=== PATIENT | male | born 1975 | race Caucasian/White ===

== ENCOUNTER 2016-10-05 02:29 | Emergency (ER) | payer OTHER, MEDICARE ==
[2016-10-05 03:11] LABS: BASOPHIL# 0.1 X 10^3uL (0.0-0.1); BASOPHILS 0.6 % (0.0-2.0); EOSINOPHILS 0.3 % (0.0-6.0); HEMATOCRIT 42.7 % (42.0-54.0); HEMOGLOBIN 14.7 g/dL (14.0-18.0); LYMPHOCYTES 19.1 % (20.0-40.0); LYMPHOCYTES# 1.8 X 10^3uL (0.8-3.8); MEAN CELL VOLUME 89.1 fL (80.0-100.0); MEAN CORPUS. HGB CONCENTRATION 34.5 g/dL (32.0-36.0); MEAN CORPUSCULAR HEMOGLOBIN 30.7 pg (29.0-35.0); MONOCYTES 6.1 % (2.0-10.0); MONOCYTES# 0.6 X 10^3uL (0.2-1.0); NEUTROPHILS 73.9 % (54.0-75.0); NEUTROPHILS# 6.7 X 10^3uL (2.6-6.7); PLATELET COUNT 289 X 10^3uL (130-440); RED CELL DISTRIBUTION WIDTH 12.5 % (11.5-14.5); WHITE BLOOD COUNT 9.2 X 10^3uL (3.9-10.7)
[2016-10-05 03:23] LABS: ALBUMIN 4.6 g/dL (3.5-5.0); ALKALINE PHOSPHATASE 82 U/L (38-126); ALT 32 U/L (21-72); AST 33 U/L (17-59); BILIRUBIN, DIRECT 0.1 mg/dL (0.0-0.4); BILIRUBIN, TOTAL 0.6 mg/dL (0.2-1.3); BLOOD UREA NITROGEN 14 mg/dL (9-20); CALCIUM 9.4 mg/dL (8.4-10.2); CHLORIDE 102 mmol/L (98-107); EST GLOMERULAR FILTRATION RATE > 60 mL/min; GLUCOSE 105 mg/dL (70-100); LIPASE 141 U/L (23-300); POTASSIUM 3.9 mmol/L (3.5-5.1); SODIUM 140 mmol/L (137-145); TOTAL PROTEIN 7.7 g/dL (6.3-8.2)
[2016-10-05] MEDS ORDERED: ONDANSETRON HCL 4 MG/2 ML VIAL ONE (03:54)
--- NOTE | 2016-10-05 04:59 | ER NURSING DOCUMENTATION ---
Nurse's Notes [facility] Name:Mario Manzo Age:41 yrs Sex:Male :1975 Arrival Date:10/05/2016 Time:02:29 Bed3 Private MD: Diagnosis:Nausea-: Chronic, recurrent, intractable;Intractable Vomiting;Dehydration Presentation: 10/05 02:36 Acuity: PIERO 3 bw2 02:39 Presenting complaint: Patient states: chronic nausea, states that the nausea and bw2 vomiting has increased since yesterday. pt states he is unable to keep food down. Transition of care: patient was not received from another setting of care. 02:39 Method Of Arrival: Walk In [facility] Triage Assessment: 02:41 General: Appears in no apparent distress, uncomfortable, Behavior is appropriate for bw2 age. Pain: Denies pain. GI: Reports intolerance of fluids, intolerance of food, nausea, vomiting, Denies diarrhea. Historical: - Allergies: No known drug Allergies; - Tetanus: < 10 years. - Ebola Screening: : Patient negative for fever greater than or equal to 101.5 degrees Fahrenheit, and additional compatible Ebola Virus Disease symptoms. Patient denies exposure to infectious person. Patient denies travel to an Ebola-affected area in the 21 days before illness onset. No symptoms or risks identified at this time. . - Immunization history: Flu Vaccine None. - Social history: Smoking status: Patient uses tobacco products, current every day smoker. Patient uses marijuana. Screenin:43 Infectious Disease Risk None. Abuse screen: Denies threats or abuse. Nutritional bw2 screening: No deficits noted. Assessment: 02:43 See Triage Assessment done by same RN. GI: Dry heaves. bw2 Vital Signs: 02:34 BP 135 / 100; Pulse 108; Resp 16; Temp 97.7; Pulse Ox 96% ; Weight 49.9 kg; Height 5 jt ft. 10 in. (177.80 cm); Pain 0/10; 04:56 BP 133 / 62; Pulse 97; Resp 18; Pulse Ox 95% ; Pain 0/10; bw2 02:34 Body Mass Index 15.78 (49.90 kg, 177.80 cm) jt ED Course: 02:30 Patient arrived in ED. jt 02:36 Yanique Swenson is Primary Nurse. bw2 02:36 Triage completed. bw2 02:37 Mathew Felton MD is Attending Physician. cd 02:43 Valuables Remains with patient Patient has correct armband on for positive bw2 identification. Side rails up X2. 02:48 Inserted peripheral IV: saline lock: 20 gauge in right antecubital area and blood jt collected. Administered Medications: 02:53 Drug: NS 0.9% 2000 ml; Route: IV; Rate: bolus; Site: right antecubital; bw2 03:49 Follow up: IV Status: Completed infusion bw2 02:53 Drug: Phenergan 12.5 mg; Route: IVP; Site: right antecubital; bw2 03:49 Follow up: Response: No adverse reaction; Nausea is decreased bw2 03:35 Drug: Zofran 4 mg; Route: IVP; Infused Over: 2 mins; Site: right antecubital; bw2 04:30 Follow up: Response: No adverse reaction bw2 03:48 Drug: NS 0.9% 1000 ml; Route: IV; Rate: 1 bolus; Site: right antecubital; bw2 04:30 Follow up: IV Status: Completed infusion bw2 03:54 CANCELLED (Physician Discretion): Phenergan 25 mg PO once cd 04:04 Drug: Phenergan 12.5 mg; Route: IVP; Site: right antecubital; bw2 04:29 Follow up: Response: No adverse reaction bw2 04:53 CANCELLED (Physician Discretion): Phenergan 25 mg PO every 4 hours; Phenergan 25mg by cd mouth every 4 - 6 hours as needed for nausea or vomiting (Dispense # 2) Outcome: 04:37 Discharge ordered by . cd 04:56 Discharged to home ambulatory. bw2 04:56 Condition: good 04:56 Discharge Assessment: Patient awake, alert and oriented x 3. No cognitive and/or functional deficits noted. Patient verbalized understanding of disposition instructions. 04:56 Discharge instructions given to patient, Instructed on discharge instructions, follow up and referral plans. Demonstrated understanding of instructions. 04:59 Patient left the ED. bw2 0612 15:48 Discharge F/U Call: Unable to reach: non-working number lc Signatures: Gabrielle Zapata RN RN Mathew Oneill MD MD cd Tennant, Joanne jt Wisely, Beth bw2
--- NOTE | 2016-10-05 04:59 | ER PHYSICIAN DOCUMENTATION ---
Physician Documentation [facility] Name:Mario Manzo Age:41 yrs Sex:Male :1975 Arrival Date:10/05/2016 Time:02:29 Bed3 Private MD: Mathew Vargas Disposition: 10/05 04:30 Chart complete. cd Disposition: 10/05/16 04:37 Discharged to Home/Self Care. Impression: Nausea - : Chronic, recurrent, intractable, Intractable Vomiting, Dehydration. - Condition is Fair. - Discharge Instructions: DEHYDRATION (6y-Adult), VOMITING (6y-Adult). - Prescriptions for Zofran 4 mg Oral - take 1 tablet by ORAL route every 4 hours .; 20 tablet. - Medical Reconciliation form form. - Follow up: Private Physician; When: 7 - 10 days; Reason: Recheck today's complaints, Continuance of care. - Problem is an acute exacerbation. - Symptoms have improved. HPI: 02:44 This 41 yrs old Male presents to ER via Walk In with complaints of cd Nausea/Vomiting. 02:44 The patient presents to the emergency department with nausea, that is severe, with "dry cd heaves", with vomiting, that is continuous, described as clear fluid, without any complaints of abdominal pain. Onset: The symptom(s)/episode began/occurred acutely, 8 hour(s) ago, Patient reports he had severe nausea all day...then at 18:30 PM the vomiting started and has been unrelenting. . Possible causes: unknown, Patient has had chronic recurrent nausea and vomiting for 18 hours out of 24 hours of for the past 9 years. He lives in [place] and came to [place] a few days ago with his and parents. He has had very little fluids and food today because of his severe nausea. He feels very dehydrated and states when he feels this way, he usually will go to [facility] ED for IV fluids and anti-emetics. He denies Street Drugs, except occasional Cannabis for the nausea. The physicians in [place] have done multiple workups for this Chronic Nausea and vomiting without finding any etiology. The symptoms are aggravated by food , The symptoms are alleviated by nothing. Severity of symptoms: At their worst the symptoms were severe in the emergency department the symptoms are unchanged. The patient has experienced similar episodes in the past, but today's symptoms are worse, lasting longer. Historical: - Allergies: No known drug Allergies; - Tetanus: < 10 years. - Ebola Screening: : Patient negative for fever greater than or equal to 101.5 degrees Fahrenheit, and additional compatible Ebola Virus Disease symptoms. Patient denies exposure to infectious person. Patient denies travel to an Ebola-affected area in the 21 days before illness onset. No symptoms or risks identified at this time. . - Immunization history: Flu Vaccine None. - Social history: Smoking status: Patient uses tobacco products, current every day smoker. Patient uses marijuana. ROS: 02:50 ENT: Negative for injury, pain, epistaxis and discharge. cd Neck: Negative for injury, pain, stiffness and swelling. Cardiovascular: Negative for chest pain, palpitations, edema and pleuritic pain. Respiratory: Negative for shortness of breath, dyspnea on exertion, cough, sputum production, wheezing, hemoptysis and pleuritic chest pain. MS/Extremity: Negative for injury, deformity, edema, calf tenderness, pain or coldness. Skin: Negative for injury, rash, itching and discoloration. 02:50 Neuro: Negative for headache, weakness, numbness, tingling, and seizure. cd 02:50 Constitutional: Positive for poor PO intake, Negative for chills, fever. 02:50 Abdomen/GI: Positive for nausea, vomiting, anorexia, Negative for abdominal pain, diarrhea, abdominal cramps, abdominal distension, hematemesis, black/tarry stool, rectal bleeding. 02:50 Back: Negative for pain at rest. 02:50 : Negative for urinary symptoms, burning with urination. 02:50 All other systems are negative. Exam: Head/Face: Normocephalic, atraumatic. Eyes: Pupils equal round and reactive to light, extra-ocular motions intact. Lids and lashes normal. Conjunctiva and sclera are non-icteric and not injected. Cornea within normal limits. Periorbital areas with no swelling, redness, or edema. ENT: Nares patent. No nasal discharge, no septal abnormalities noted. Tympanic membranes are normal and external auditory canals are clear. Oropharynx with no redness, swelling, or masses, exudates, or evidence of obstruction, uvula midline. Mucous membranes dry 02:51 Neck: Trachea midline, no thyromegaly or masses palpated, and no cervical cd lymphadenopathy. Supple, full range of motion without nuchal rigidity, or vertebral point tenderness. No Meningismus. Back: No spinal tenderness. No costovertebral tenderness. Full range of motion. Skin: Warm, dry with normal turgor. Normal color with no rashes, no lesions, and no evidence of cellulitis. MS/ Extremity: Pulses equal, no cyanosis. Neurovascular intact. Full, normal range of motion. 02:51 Neuro: Awake and alert, GCS 15, oriented to person, place, time, and situation. Cranial nerves II-XII grossly intact. Motor strength 5/5 in all extremities. Sensory grossly intact. Cerebellar exam normal. Normal gait. 02:51 Constitutional: The patient appears alert, awake, non-diaphoretic, non-toxic, well developed, well nourished, anxious, in obvious distress, moderately distressed. 02:51 Cardiovascular: Rate: tachycardic, Rhythm: regular, Pulses: no pulse deficits are appreciated, Heart sounds: normal. 02:51 Respiratory: the patient does not display signs of respiratory distress, Respirations: normal, no acute changes, Breath sounds: are normal, clear throughout. 02:51 Abdomen/GI: Inspection: abdomen appears normal, Bowel sounds: normal, Palpation: abdomen is soft and non-tender, Rectal exam: the exam is deferred. Vital Signs: 02:34 BP 135 / 100; Pulse 108; Resp 16; Temp 97.7; Pulse Ox 96% ; Weight 49.9 kg; Height 5 jt ft. 10 in. (177.80 cm); Pain 0/10; 04:56 BP 133 / 62; Pulse 97; Resp 18; Pulse Ox 95% ; Pain 0/10; bw2 02:34 Body Mass Index 15.78 (49.90 kg, 177.80 cm) jt MDM: 02:37 Patient medically screened. cd 02:40 Data interpreted: Pulse oximetry: on room air is 95 %. Interpretation: normal. cd 02:50 Differential diagnosis: gastritis, viral gastroenteritis, gastroenteritis, Cyclic cd Vomiting, Severe Dehydration. 03:00 Data reviewed: vital signs, nurses notes, old medical records, and as a result, I will cd continue to observe the patient, administer IV fluids, NS bolus, NS maintenence, Phenergan for nausea. 04:30 Counseling: I had a detailed discussion with the patient and/or guardian regarding: the cd historical points, exam findings, and any diagnostic results supporting the discharge/admit diagnosis, lab results, the need for outpatient follow up, for a recheck, with the patient's primary care provider, to return to the emergency department if symptoms worsen or persist or if there are any questions or concerns that arise at home. Response to treatment: the patient's symptoms have resolved after treatment, the patient's condition has returned to base line, the patient is now symptom free, patient is well hydrated. and as a result, I will discharge patient. 10/05 03:15 Order name: CBC AUTO DIF, MDIF/RMOR IF IND; Complete Time: 03:35 EDMS 10/05 03:35 Interpretation: Normal. 10/05 03:24 Order name: BASIC METABOLIC PANEL; Complete Time: 03:35 EDMS 10/05 03:35 Interpretation: Normal. 10/05 03:24 Order name: HEPATIC PANEL; Complete Time: 03:35 EDMS 10/05 03:35 Interpretation: Normal. 10/05 03:24 Order name: LIPASE; Complete Time: 03:35 EDMS 10/05 03:35 Interpretation: Normal. 10/05 02:38 Order name: I & O; Complete Time: 02:53 cd 10/05 02:38 Order name: NPO; Complete Time: 02:53 cd Dispensed Medications: 02:53 Drug: NS 0.9% 2000 ml; Route: IV; Rate: bolus; Site: right antecubital; bw2 03:49 Follow up: IV Status: Completed infusion bw2 02:53 Drug: Phenergan 12.5 mg; Route: IVP; Site: right antecubital; bw2 03:49 Follow up: Response: No adverse reaction; Nausea is decreased bw2 03:35 Drug: Zofran 4 mg; Route: IVP; Infused Over: 2 mins; Site: right antecubital; bw2 04:30 Follow up: Response: No adverse reaction bw2 03:48 Drug: NS 0.9% 1000 ml; Route: IV; Rate: 1 bolus; Site: right antecubital; bw2 04:30 Follow up: IV Status: Completed infusion bw2 03:54 CANCELLED (Physician Discretion): Phenergan 25 mg PO once cd 04:04 Drug: Phenergan 12.5 mg; Route: IVP; Site: right antecubital; bw2 04:29 Follow up: Response: No adverse reaction 2 04:53 CANCELLED (Physician Discretion): Phenergan 25 mg PO every 4 hours; Phenergan 25mg by cd mouth every 4 - 6 hours as needed for nausea or vomiting (Dispense # 2) Signatures: Mathew Felton MD MD cd Wisely, Beth 2
== END 2016-10-05 04:59 | disposition home or self-care (01) ==
LOC: ER 02:29
DX: R11.2 Nausea with vomiting, unspecified (principal); E86.0 Dehydration; F17.210 Nicotine dependence, cigarettes, uncomplicated
CPT/HCPCS: 80048; 80076; 83690; 85025; 96361; 96374; 96375; 96376; J2405; J2550; Q0169